=== PATIENT | female | born 1970 | race Caucasian/White ===

== ENCOUNTER → 2021-07-05 12:29 | Outpatient (CLI) | payer MEDICARE, MEDICAID, SELFPAY ==
--- NOTE | ~2021-07-05 | DEXA_ITS ---
Bone Density Report Name: FRANDY SAVAGE Age: 51 Sex: Female Ethnicity: White Date of : 1970 Indication: screening for osteoporosis; Referring Provider: Terri Jackman Study: Bone densitometry was performed. Exam Date: July 05, 2021 Accession number: [id number] Bone Density: Region BMD T-score Z-score Classification AP Spine (L1-L4) 1.101 0.5 1.3 Normal Femoral Neck (Left) 0.799 -0.4 0.3 Normal Total Hip (Left) 0.801 -1.2 -0.7 Osteopenia Femoral Neck (Right) 0.773 -0.7 0.1 Normal Total Hip (Right) 0.768 -1.4 -0.9 Osteopenia Total Hip Mean 0.785 -1.3 -0.8 Osteopenia World Health Organization criteria for BMD impression classify patients as: Normal (T-score at or above -1.0), Osteopenia (T-score between -1.0 and -2.5), or Osteoporosis (T-score at or below -2.5). 10-year Fracture Risk(1): Major Osteoporotic Fracture 3.7% Hip Fracture 0.1% Reported Risk Factors: [place] (), Neck BMD=0.773, BMI=32.8 (1) FRAX(R) Version 3.08. Fracture probability calculated for an untreated patient. Fracture probability may be lower if the patient has received treatment. Clinical Information Provided by Patient: Has used the following medications: Vitamin D, Calcium, DEPO Patient maximum height was 65.0 No regular weight bearing exercise Drinks caffeinated beverages Onset of menses at age 11 Premenopausal Number of children 0 Missed period for more than 6 months in a row Impression: The patient's bone mass is within expected range for age, gender and ethnicity. The patient has an estimated ten-year risk of hip fracture of 0.1% and an estimated ten-year risk of major fracture of 3.7%, based on the WHO FRAX algorithm. Discussion: BONE DENSITY IS WITHIN EXPECTED LIMITS FOR AGE, SEX AND RACE. Bone density is within expected limits for age, sex and race at all sites measured. The patient should follow a healthful lifestyle (good nutrition with adequate calcium and vitamin D, and appropriate weight-bearing exercise). Follow-Up: Consider repeating this study in 2 to 3 years to reassess this patient's status, or sooner if there is some new clinical indication. Reported by: TIANA on 07/05/2021 3:08:00 PM. Reviewed, dictated and finalized at location [facility]
== END ==
PROVIDERS: Visit Provider Advanced Practice Midwife
DX: Z79.3 Long term (current) use of hormonal contraceptives (principal); M85.852 Other specified disorders of bone density and structure, left thigh
CPT/HCPCS: 77080

== ENCOUNTER 2023-11-21 10:58 | Outpatient (CLI) | payer MEDICARE, MEDICAID, SELFPAY ==
--- NOTE | ~2023-11-21 | DEXA_ITS ---
Bone Density Report Name: FRANDY SAVAGE Age: 53 Sex: Female Ethnicity: White Date of : 1970 Indication: osteopenia; height loss; asthma or emphysema; Referring Provider: RAMANDEEP ALARCON Study: Bone densitometry was performed. Exam Date: November 21, 2023 Accession number: [id number] Bone Density: Region BMD T-score Z-score Classification AP Spine (L1, L4) 1.030 -0.1 0.9 Normal Femoral Neck (Left) 0.735 -1.0 -0.1 Normal Total Hip (Left) 0.729 -1.7 -1.2 Osteopenia Femoral Neck (Right) 0.724 -1.1 -0.2 Osteopenia Total Hip (Right) 0.700 -2.0 -1.4 Osteopenia Total Hip Mean 0.715 -1.9 -1.3 Osteopenia World Health Organization criteria for BMD impression classify patients as: Normal (T-score at or above -1.0), Osteopenia (T-score between -1.0 and -2.5), or Osteoporosis (T-score at or below -2.5). 10-year Fracture Risk: FRAX not reported because: Premenopausal woman Previous Exams: Region Exam Age BMD T-score BMD Change BMD Change Date g/cm2 vs Baseline vs Previous AP Spine(L1, L4) 11/21/2023 53 1.030 -0.1 -0.069 -0.069 07/05/2021 51 1.100 0.6 Total Hip(Left) 11/21/2023 53 0.729 -1.7 -0.072 -0.072 07/05/2021 51 0.801 -1.2 Total Hip(Right) 11/21/2023 53 0.700 -2.0 -0.068 -0.068 07/05/2021 51 0.768 -1.4 *Denotes significance at 95% confidence level, LSC for AP Spine = 0.022 g/cm2, LSC for Total Hip = 0.027 g/cm2 Clinical Information Provided by Patient: Has used the following medications: Vitamin D, Calcium, DEPO Has the following medical conditions: Asthma or Emphysema Patient maximum height was 67.0 Drinks caffeinated beverages Onset of menses at age 11 Premenopausal Number of children 0 Missed period for more than 6 months in a row Impression: The patient's bone mass is within expected range for age, gender and ethnicity. No significant bone loss was observed. Discussion: BONE DENSITY IS WITHIN EXPECTED LIMITS FOR AGE, SEX AND RACE. Bone density is within expected limits for age, sex and race at all sites measured. The patient should follow a healthful lifestyle (good nutrition with adequate calcium and vitamin D, and appropriate weight-bearing exercise). Follow-Up: Consider repeating this study in 2 to 3 years to reassess this patient's status, or sooner if there is some new clinical indication. Reported by: LUIS ANGEL on 11/21/2023 11:31:00 AM.
== END 2023-11-21 10:59 ==
PROVIDERS: PCP Family Medicine; Visit Provider Obstetrics & Gynecology
DX: M85.89 Other specified disorders of bone density and structure, multiple sites (principal); M85.852 Other specified disorders of bone density and structure, left thigh; M85.851 Other specified disorders of bone density and structure, right thigh
CPT/HCPCS: 77080